=== PATIENT | female | born 1980 | race Two or more races ===

== ENCOUNTER 2025-08-19 06:30 | Day surgery (SDC) | payer MEDICAID, SELFPAY ==
[2025-08-08 11:27] LABS: Anion Gap 9 (7-16); BUN/Creatinine Ratio 16 Ratio (12-20); Blood Urea Nitrogen 13 mg/dL (9-23); Calcium 9.3 mg/dL (8.3-10.6); Carbon Dioxide 28.1 mMol/L (20.0-31.0); Chloride 106 mMol/L (98-107); Creatinine (Component) 0.8 mg/dL (0.6-1.3); Glucose 88 mg/dL (74-106); Osmolality,Calculated 284 (275-295); Potassium 4.3 mMol/L (3.4-5.1); Sodium 143 mMol/L (136-145); eGFR > 60 See Note
[2025-08-13 12:52] VITALS: BMI 28.7
[2025-08-16 12:14] LABS: HCG Qualitative,Urine Negative
[2025-08-19 06:50] VITALS: BP 118/74; PULSE 62; RESP 13; TEMP 36.4; O2SAT 96; BMI 27.4
[2025-08-19] MEDS: SODIUM CHLORIDE 0.9% 500 ML 500 ML 20 ML IV (07:38)
[2025-08-19] MEDS: SIMETHICONE 40 MG/0.6 ML ORAL SYRINGE PO (07:49)
[2025-08-19] MEDS: PROMETHAZINE INJ 12.5 MG in SODIUM CHLORIDE 0.9% 50 ML 2.5 MG IV (08:00)
[2025-08-19] MEDS: ONDANSETRON INJ 2 MG/ML INJ 2 ML 4 MG IVP (08:05)
[2025-08-19 08:09] VITALS: BP 152/97; PULSE 85; RESP 14; TEMP 36.5; O2SAT 100
[2025-08-19 08:19] VITALS: BP 126/61; PULSE 81; RESP 17; O2SAT 100
[2025-08-19 08:29] VITALS: BP 152/97; PULSE 68; RESP 17; O2SAT 98
[2025-08-19 08:39] VITALS: BP 136/89; PULSE 82; RESP 20; O2SAT 99
== END 2025-08-19 08:41 | disposition home or self-care (01) ==
PROVIDERS: PCP Family Medicine; Referring Provider Surgery; Visit Provider Surgery
PROC: 0DBE8ZX Excision of Large Intestine, Via Natural or Artificial Opening Endoscopic, Diagnostic (ICD-10-PCS; CPT 45380; principal; 2025-08-19 07:30)
DX: K64.1 Second degree hemorrhoids (principal); K64.4 Residual hemorrhoidal skin tags; K62.5 Hemorrhage of anus and rectum
CPT/HCPCS: 45378; 36415; 80048; 81025; A4649; J1100; J2405; J2550; J7999; A9270

== ENCOUNTER 2025-08-19 12:52 | Emergency (ER) | payer MEDICAID, SELFPAY ==
[2025-08-19 13:08] VITALS: BP 148/82; PULSE 89; RESP 24; TEMP 37.1; O2SAT 96; BMI 28.3
--- NOTE | 2025-08-19 13:22 | XR_ITS ---
Study: Abdomen and pelvis CT. INDICATION: Nausea and vomiting post colonoscopy of this day. TECHNIQUE: 3 mm slice thickness axial without contrast. 3 mm sagittal and coronal. Radiation dose: 4 mGy centimeters with dose reduction techniques. 1878 images acquired at 1404 hours 19 August 2025. Findings: The patient was imaged from the right main pulmonary artery crossing to the subtrochanteric regions. The heart, lung bases and pleural spaces are normal. The gallbladder, kidneys, ureters and urinary bladder are free from calculi. There is no hydronephrosis, ascites or free abdominal air. Parenchyma of the liver, pancreas, spleen, kidneys, adrenal glands and periaortic lymph node region is normal within the limitations of a noncontrasted study. The stomach, duodenum, small bowel, appendix and well prepared colon are normal in appearance. The urinary bladder is free from masses. The uterus is retroverted. A 1.2 cm cyst is seen on the left ovary. The spine is normally aligned. The aorta and inferior vena cava are normal in caliber. There is no aortic plaque burden. IMPRESSION: No acute diagnostic abnormality.
--- NOTE | 2025-08-19 13:23 | PD.EDADULT ---
ED General RME/HPI General Chief complaint: Nausea/Vomiting/Diarrhea Stated complaint: VOMITING SINCE COLONOSCOPY @ 0700 TODAY Time Seen by Provider: 08/19/25 13:21 Arrival date/time: 08/19/25 12:52 CC: Nausea vomiting abdominal pain HPI patient had a colonoscopy done this morning by Dr. Hayes, patient has had persistent unrelenting nausea vomiting with abdominal pain since the colonoscopy he was referred to the emergency room via his office for follow-up. Related Data Home Medications ?Medication ?Instructions ?Recorded ?Confirmed ondansetron HCl 4 mg tablet 4 mg PO Q8H 08/19/25 08/19/25 oxycodone 10 mg tablet 10 mg PO Q6H PAIN 08/19/25 08/19/25 Previous Rx's ?Medication ?Instructions ?Recorded ondansetron 4 mg disintegrating 4 mg PO Q8H #10 tabs 08/19/25 tablet Allergies Allergy/AdvReac Type Severity Reaction Status Date / Time No Known Allergies Allergy Verified 08/19/25 12:54 Review of Systems Review of Systems Narrative Review of Systems: GEN: No fever, no chills, no weight loss EYES: No discharge, no visual changes, no pain HEENT: No ear pain, no congestion, no sore throat PULM: No shortness of breath, no cough, no congestion CV: No chest pain, no dyspnea on exertion, no palpitations GI: + nausea, + vomiting, no diarrhea, + pain, no constipation : No frequency, no urgency, no dysuria MUSC/SKEL: No joint pain, no back pain SKIN: No rash PSYCH: No hallucinations, no depression HEME/LYMPH: No easy bleeding or bruising tendencies NEURO: No weakness, no headache ED Exam Narrative Physical exam: [General: In moderate discomfort but not in any acute distress Head normocephalic HEENT: Within acceptable limits Neck is supple nontender Chest equal chest rise nontender to palpation Respiratory: Clear to auscultation no wheezes crackles or rubs CV: Rate rhythm is regular no murmurs rubs or clicks Abdomen is soft nontender no masses positive bowel sounds all 4 quadrants Back: No CVA tenderness no spinous process tenderness from cervical spine thoracic and lumbar spine Skin: Intact no petechiae rash induration ulceration or crepitus Extremities: Moving all extremity against resistance cap refill less than 2 seconds neurosensory intact Neuro: Awake alert oriented x3 Glascow coma 15 no focal deficits] Course Course Course Narrative: Laboratory results are wholly unremarkable specifically the lipase is normal as the patient is attributing her pain nausea and vomiting to her pancreatitis . Patient was scoped this morning, CT shows there is no perforation or free air. There is no transaminitis or T. bili elevation suggestive of choledocholithiasis. Patient will be discharged home. Quality Measures none Orders Category Date Time Status CT abdomen pelvis wo con Stat Exams 08/19/25 13:22 Completed CBC Stat Lab 08/19/25 13:51 Completed CMP [Comprehensive Metabolic Panel] Stat Lab 08/19/25 13:51 Completed Lipase Stat Lab 08/19/25 13:51 Completed Ondansetron Odt [Zofran Odt] Med 08/19/25 13:23 Discontinued 4 mg PO X1 ONE Ondansetron Odt [Zofran Odt] Med 08/19/25 15:20 Discontinued 4 mg PO X1 ONE Prochlorperazine Inj [Compazine Inj] Med 08/19/25 15:21 Discontinued 10 mg IM X1 ONE oxyCODONE/APAP 5/325 [Percocet 5/325] Med 08/19/25 15:20 Discontinued 1 tab PO X1 ONE Vital Signs Vital signs: Vital Signs Temperature 98.8 F 08/19/25 13:08 Pulse Rate 89 08/19/25 13:08 Respiratory Rate 24 H 08/19/25 13:08 Blood Pressure 148/82 H 08/19/25 13:08 Pulse Oximetry (%) 96 08/19/25 13:08 Oxygen Delivery Method Room Air 08/19/25 13:08 Discharge Plan Plan Patient Disposition: HOME (Self Care) Patient condition on transfer: Stable Prescriptions/Referrals Prescriptions/Med Rec: New ondansetron 4 mg tablet,disintegrating 4 mg PO Q8H Qty: 10 0RF No Action ondansetron HCl 4 mg tablet 4 mg PO Q8H oxycodone 10 mg tablet 10 mg PO Q6H Referrals: Pantera Magallon MD [Primary Care Provider, Family Practice] - In 1 week Problem List Clinical Impression: Abdominal pain, Nausea & vomiting Impression comment: Follow-up with GI Patient/Caregiver Discharge Instructions Education Materials: Abdominal Pain Print Language: Andorran Stand Alone Forms: Lisa Award Info., Work/School Release, Patient Portal Info Letter MARY BETH Supervising Physician MARY BETH Supervising Physician: Chalino Merchant ENP [facility] Clinical Information Provided by: patient Medical Records reviewed [facility] Meds/Rx considered, not ordered None Labs/Rad/Tests considered, not ordered None Chronic Illness/Social Conditions which may negatively complicate care or outcome(s)-explain: None or not applicable Labs Labs: interpreted by ct Lab(s) Interpretation(s): CBC shows mild leukocytosis of 13.0 no anemia thrombocytopenia CMP shows no significant electrolyte imbalances renal impairment transaminitis or T. bili elevation Lipase is normal. Imaging Imaging interpretation: interpreted by ct Imaging Interpretation(s): CT abdomen pelvis shows no acute finding including perforation or free air. Medication Administration(s) Medication Administration History Discontinued Medications Ondansetron HCl (Ondansetron Odt 4 Mg Tabrap) 4 mg PO X1 ONE; Protocol Stop: 08/19/25 13:24 Last Admin: 08/19/25 13:26 Dose: 4 mg Documented By: OA Ondansetron HCl (Ondansetron Odt 4 Mg Tabrap) 4 mg PO X1 ONE; Protocol Stop: 08/19/25 15:21 Last Admin: 08/19/25 15:42 Dose: 4 mg Documented By: OA Oxycodone/Acetaminophen (Oxycodone/Apap 5/325 Tablet) 1 tab PO X1 ONE Stop: 08/19/25 15:21 Last Admin: 08/19/25 15:42 Dose: 1 tab Documented By: OA Prochlorperazine Edisylate (Prochlorperazine Inj 5 Mg/Ml Vial 2 Ml) 10 mg IM X1 ONE; Protocol Stop: 08/19/25 15:22 Last Admin: 08/19/25 15:34 Dose: 10 mg Documented By: OA
[2025-08-19] MEDS: ONDANSETRON ODT 4 MG TABRAP PO ×2 (13:26→15:42)
[2025-08-19 14:07] LABS: Basophils # (Auto) 0.0 Thou/mm3 (0.0-0.2); Basophils % (Auto) 0 % (0-2.5); Eosinophils # (Auto) 0.0 Thou/mm3 (0.0-0.5); Eosinophils % (Auto) 0 % (0-10); Hematocrit 36.3 % (36.0-46.0); Hemoglobin 12.8 g/dL (12.0-16.0); Immature Granulocytes Auto 0.04 Thou/mm3 (0.00-0.00); Lymphocytes # (Auto) 0.8 Thou/mm3 (1.0-4.8); Lymphocytes % (Auto) 6 % (10-50); Mean Corpuscular HGB Conc 35.3 g/dl (31.0-37.0); Mean Corpuscular Hemoglobin 30.8 pg (25.0-35.0); Mean Corpuscular Volume 87 fL (80-100); Monocytes # (Auto) 0.1 Thou/mm3 (0.0-0.8); Monocytes % (Auto) 1 % (0-12); Neutrophils # (Auto) 12.1 Thou/mm3 (1.8-7.7); Neutrophils % (Auto) 93 % (37-80); Nucleated Red Blood Cell # 0.00 Thou/mm3 (0.00-0.00); Nucleated Red Blood Cell % 0 /100 WBC (0); Platelet Count 204 Thou/mm3 (140-440); RDW Standard Deviation 38.4 fL (36.4-46.3); Red Blood Count 4.16 Miln/mm3 (4.00-5.20); White Blood Count 13.0 Thou/mm3 (3.6-11.0)
[2025-08-19 14:38] LABS: Alanine Aminotransferase 15 U/L (10-49); Albumin, Serum 5.4 gm/dL (3.5-5.0); Albumin/Globulin Ratio 1.9 (1.2-2.2); Alkaline Phosphatase 50 U/L (46-116); Anion Gap 16 (7-16); Aspartate Amino Transferase 23 U/L (0-34); BUN/Creatinine Ratio 16 Ratio (12-20); Bilirubin,Total 0.5 mg/dL (0.3-1.2); Blood Urea Nitrogen 13 mg/dL (9-23); Calcium 9.4 mg/dL (8.3-10.6); Calcium (Corrected) 9.4 mg/dL (8.5-10.1); Carbon Dioxide 20.5 mMol/L (20.0-31.0); Chloride 105 mMol/L (98-107); Creatinine (Component) 0.8 mg/dL (0.6-1.3); Estimated Creatinine Clearance 81.6 mL/min (>60); Globulin 2.9 gm/dL (2.3-3.5); Glucose 169 mg/dL (74-106); Lipase 23 U/L (12-53); Osmolality,Calculated 285 (275-295); Potassium 3.9 mMol/L (3.4-5.1); Sodium 141 mMol/L (136-145); Total Protein 8.3 gm/dL (5.7-8.2); eGFR > 60 See Note
[2025-08-19 15:28] VITALS: PULSE 99; RESP 25; TEMP 37.1; O2SAT 100
[2025-08-19] MEDS: PROCHLORPERAZINE INJ 5 MG/ML VIAL 2 ML 10 MG IM (15:34)
== END 2025-08-19 16:06 | disposition home or self-care (01) ==
PROVIDERS: Registered Nurse General Practice; Emergency Provider Family Medicine; PCP Family Medicine
DX: R11.2 Nausea with vomiting, unspecified (principal); R10.9 Unspecified abdominal pain; D72.829 Elevated white blood cell count, unspecified
CPT/HCPCS: 36415; 74176; 80053; 83690; 85025; 96372; 99283; J0780; Q0162; A9270